=== PATIENT | female | born 1990 | race African-American/Black ===

== ENCOUNTER 2017-09-21 16:41 | Emergency (ER) | END 2017-09-21 17:39 | disposition home or self-care (01) ==

== ENCOUNTER 2017-12-17 10:16 | Emergency (ER) | END 2017-12-17 12:01 | disposition home or self-care (01) ==

== ENCOUNTER 2018-04-25 08:43 | Emergency (ER) | payer SELFPAY ==
[~2018-04-25] VITALS: Wt 78.2 kg
[2018-04-25 08:47] VITALS: BP 127/93; PULSE 96; RESP 18
[2018-04-25] MEDS ORDERED: AMOX500C2 PO (09:17)
--- NOTE | 2018-04-25 10:42 | ERD ---
ER Documentation Chief Complaint Chief Complaint RIGHT EAR HEARING DIMINISHED HPI 27-year-old female patient with no significant past medical history reports that she started to have right ear pain, feeling like something is in her right ear with diminished hearing that started a few days ago after using a Q-tip. P atient denies any fever, chills, nausea, vomiting, chest pain, shortness of breath. Denies any head trauma. ROS All systems reviewed and are negative except as per history of present illness. Medications Home Meds Active Scripts Amoxicillin* (Amoxicillin*) 500 Mg Cap, 500 MG PO TID for 10 Days, CAP Prov:DAYA HAAS PA-C 04/25/18 Allergies Allergies: Coded Allergies: No Known Allergy (Unverified , 12/17/17) PMhx/Soc Medical and Surgical Hx: pt denies Medical Hx, pt denies Surgical Hx Hx Alcohol Use: No Hx Substance Use: No Hx Tobacco Use: No Smoking Status: Never smoker FmHx Family History: No diabetes, No coronary disease Physical Exam Vitals Vital Signs Date Temp Pulse Resp B/P (MAP) Pulse Ox O2 O2 Flow FiO2 Time Delivery Rate 04/25/18 98.3 96 18 127/93 99 08:47 (104) Physical Exam Const: Qot-zri-brugkdsel, well-nourished. In no acute distress. Head: Atraumatic, normocephalic Eyes: Normal Conjunctiva without injection. No purulent discharge. PERRLA. EOMI ENT: Normal external ear. Ear canal without erythema. Tympanic membrane pearly hernandez without effusion or bulging. Nasal canal clear with normal turbinates. No tenderness palpation of the tragus or mastoid. Moist oropharynx without tonsillar exudates. Non-erythematous pharynx. Uvula midline. No drooling. No trismus. Neck: No cervical midline tenderness. Full range of motion. No meningismus. No cervical lymphadenopathy. No JVD. Resp: Clear to auscultation bilaterally. No wheezing, rhonchi, rales, or crackles. No accessory muscle use. No retractions. Cardio: Regular rate and rhythm. No murmurs, rubs or gallops. Abd: Soft, non tender, non distended. Normal bowel sounds. No palpable masses. No rebound tenderness. No guarding. Negative McBurney's Point. Negative Hudson's Sign. Skin: Normal skin turgor. No petechiae or rashes Back: No midline tenderness. No CVA tenderness. Ext: No cyanosis, or edema. Distal pulses intact bilaterally. Neur: Awake and alert. Normal gait. Normal coordination. Cranial Nerves II- VII intact. Normal finger to nose. Muscle strength 5/5. Sensation intact. Psych: Normal Mood and Affect Procedures/MDM 27-year-old female patient with no significant past medical history presents to ED complaining of right ear pain, right ear hearing diminished after using a Q- tip. Patient is afebrile and nontoxic-appearing. This patient presents to the ED with symptoms consistent with a probable ruptured tympanic membrane with noted possible purulent discharge noted. P atient will be covered for infection. Patient's physical exam include lungs which were clear to auscultation and a normal pulse oximetry. There is a low suspicion for pneumonia, pneumothorax, mononucleosis, pulmonary embolism, epiglottitis, otitis media, otitis externa, viral/strep pharyngitis, sinusitis, myocarditis, pericarditis, endocarditis, peritonsillar abscess, mastoiditis, retropharyngeal abscess, meningitis, sepsis, acute abdomen or other emergent conditions. Diagnosis: Right ear pain Discharge medications: Amoxicillin Follow up with primary care physician in 1-2 days. Instructed patient to return to the ED sooner for any worsening symptoms. Patient's questions were answered. Patient is hemodynamically stable. Patient understood and agreed with discharge plan. Patient discharged stable. Disclaimer: Inadvertent spelling and grammatical errors are likely due to EHR/dictation software use and do not reflect on the overall quality of patient care. Also, please note that the electronic time recorded on this note does not necessarily reflect the actual time of the patient encounter. Departure Diagnosis: Primary Impression: Right ear pain Condition: Stable Patient Instructions: Ruptured Tm, Infected (Adult) Referrals: [facility] YOU HAVE RECEIVED A MEDICAL SCREENING EXAM AND THE RESULTS INDICATE THAT YOU DO NOT HAVE A CONDITION THAT REQUIRES URGENT TREATMENT IN THE EMERGENCY DEPARTMENT. FURTHER EVALUATION AND TREATMENT OF YOUR CONDITION CAN WAIT UNTIL YOU ARE SEEN IN YOUR DOCTORS OFFICE WITHIN THE NEXT 1-2 DAYS. IT IS YOUR RESPONSIBILITY TO MAKE AN APPOINTMENT FOR FOLOW-UP CARE. IF YOU HAVE A PRIMARY DOCTOR --you should call your primary doctor and schedule an appointment IF YOU DO NOT HAVE A PRIMARY DOCTOR YOU CAN CALL OUR PHYSICIAN REFERRAL HOTLINE AT IF YOU CAN NOT AFFORD TO SEE A PHYSICIAN YOU CAN CHOSE FROM THE FOLLOWING [facility] [address] [facility] [address] [facility] [address] [facility] [address] [facility] [address] [facility]. [facility] [address] [facility]. [facility] YOU HAVE RECEIVED A MEDICAL SCREENING EXAM AND THE RESULTS INDICATE THAT YOU DO NOT HAVE A CONDITION THAT REQUIRES URGENT TREATMENT IN THE EMERGENCY DEPARTMENT. FURTHER EVALUATION AND TREATMENT OF YOUR CONDITION CAN WAIT UNTIL YOU ARE SEEN IN YOUR DOCTORS OFFICE WITHIN THE NEXT 1-2 DAYS. IT IS YOUR RESPONSIBILITY TO MAKE AN APPOINTMENT FOR FOLOW-UP CARE. IF YOU HAVE A PRIMARY DOCTOR --you should call your primary doctor and schedule and appointment IF YOU DO NOT HAVE A PRIMARY DOCTOR YOU CAN CALL OUR PHYSICIAN REFERRAL HOTLINE AT . IF YOU CAN NOT AFFORD TO SEE A PHYSICIAN YOU CAN CHOSE FROM THE FOLLOWING [facility] INSTITUTIONS: [facility] [address] [place] [address] [facility] [address] [place] [address] [facility] + [facility] [address] [place] [address] [facility] URGENT CARE/SPECIALTIES Additional Instructions: Call your primary care doctor TOMORROW for an appointment during the next 2-3 days.See the doctor sooner or return here if your condition worsens before your appointment time. DAYA HAAS PA-C Apr 25, 2018 10:42
[2018-05-01] MEDS ORDERED: NPH10OT RIGHT EAR (09:26)
== END 2018-04-25 09:37 | disposition home or self-care (01) ==
LOC: FTE 08:43
DX: H92.01 Otalgia, right ear (principal)
CPT/HCPCS: 99283

== ENCOUNTER 2018-06-12 12:00 | Emergency (ER) | payer SELFPAY ==
[~2018-06-12] VITALS: Ht 170.2 cm; Wt 80.0 kg
[~2018-06-12 12:00] MED LIST: AMOX500C2 PO; NPH10OT RIGHT EAR
[2018-06-12 13:09] VITALS: BP 140/84; PULSE 117; RESP 18; Ht 170.2 cm; Wt 80.0 kg
[2018-06-12] MEDS ORDERED: METR500T PO (15:43)
[2018-06-12] MEDS ORDERED: DOXY100T20 PO (15:43)
--- NOTE | 2018-06-12 15:51 | ERD ---
ER Documentation Chief Complaint Chief Complaint VAGINAL DISCHARGE & PAIN X 4 DAYS HPI Patient is a 27-year-old female with no past medical history presents the ER for concerns of vaginal discharge and pain times 4 days. Patient states that she has copious amounts of yellow discharge. Patient reports burning and itching pain. Patient denies any fevers. Patient states that she is sexually active however she denies any changes in partner for 1 year. Patient states patient denies any nausea, vomiting, abdominal pain or diarrhea. Patient denies any urinary symptoms. Patient denies vaginal foreign body. ROS All systems reviewed and are negative except as per history of present illness. Medications Home Meds Active Scripts Metronidazole* (Flagyl*) 500 Mg Tablet, 500 MG PO BID for 14 Days, TAB Prov:HÉCTOR CASILLAS PA-C 06/12/18 Doxycycline Hyclate* (Doxycycline Hyclate*) 100 Mg Tablet.dr, 100 MG PO BID for 14 Days, TAB Prov:HÉCTOR CASILLAS PA-C 06/12/18 Neomycin/Polymyxin/Hydrocort* (Cortisporin* Otic) 10 Ml Susp, 4 DROP RIGHT EAR QID for 7 Days, EA Prov:CRISTY JENSEN PA-C 05/01/18 Amoxicillin* (Amoxicillin*) 500 Mg Cap, 500 MG PO TID for 10 Days, CAP Prov:DAYA HAAS PA-C 04/25/18 Allergies Allergies: Coded Allergies: No Known Allergy (Unverified , 05/01/18) PMhx/Soc Medical and Surgical Hx: pt denies Medical Hx, pt denies Surgical Hx Hx Alcohol Use: No Hx Substance Use: No Hx Tobacco Use: No Smoking Status: Never smoker FmHx Family History: No diabetes Physical Exam Vitals Vital Signs Date Temp Pulse Resp B/P (MAP) Pulse Ox O2 O2 Flow FiO2 Time Delivery Rate 06/12/18 98.6 117 18 140/84 99 13:09 (102) Physical Exam GENERAL: Well-developed, well-nourished female. Appears in no acute distress. HEAD: Normocephalic, atraumatic. EYES: Pupils are equally reactive bilaterally. EOMs grossly intact. No conjunctival erythema. ENT: Moist mucous membranes. No uvula deviation. No kissing tonsils. NECK: Supple. No meningismus. Normal range of motion of the neck. LUNG: Clear to auscultation bilaterally. No rhonchi, wheezing, rales or coarse breath sounds. HEART: Regular rate and rhythm. No murmurs, rubs or gallops. ABDOMEN: No scars, ecchymosis or rashes noted. Soft, nontender, and nondistended. Positive bowel sounds in all four quadrants. No rebound tenderness, no guarding. (-) McBurney's point tenderness. No CVA tenderness. FEMALE GENITALIA: Exam was completed with a foreclosure clerk present. Dried yellow discharge noted throughout the external genitalia. Copious yellow drainage noted from the cervical os. No cervical motion tenderness. No foreign bodies. EXTREMITIES: Equal pulses bilaterally. No peripheral clubbing, cyanosis or edema. No unilateral leg swelling. NEUROLOGIC: Alert and oriented. Moving all four extremities without any difficulty. Normal speech. Steady gait. SKIN: Normal color. Warm and dry. No rashes or lesions. Results 24 hrs Laboratory Tests Test 06/12/18 14:17 06/12/18 14:19 Bedside Urine pH (LAB) 6.5 Bedside Urine Protein (LAB) Negative Bedside Urine Glucose (UA) Negative Bedside Urine Ketones (LAB) Negative Bedside Urine Blood 2+ Bedside Urine Nitrite (LAB) Negative Bedside Urine Leukocyte Esterase (L 2+ POC Beta HCG, Qualitative NEGATIVE Current Medications Medications Dose Sig/Khari Start Time Status Last (Trade) Ordered Route PRN Stop Time Admin Dose Reason Admin Ceftriaxone 250 mg ONCE ONCE 06/12/18 DC 06/12/18 Sodium IM 16:00 15:49 (Rocephin) 06/12/18 16:00 Procedures/MDM MEDICAL DECISION MAKING: This is a 27-year-old female presents the ER for concerns of vaginal discharge times 4 days. Vital signs were reviewed. Patient was afebrile. Urine test was negative. UA showed 2+ leukocyte esterase, 2+ blood. Patient denies any urinary symptoms. I do feel that this is leukocytes or due to vaginal discharge. Wet mount showed positive leukocytes and WBCs. No yeast or clue cells were noted. No evidence of trichomoniasis. On exam, patient had copious amount of vaginal discharge and no CMT tenderness however do have concerns of early PID. Patient was given Rocephin 250 IM here and will be discharged home with prescription for metronidazole and doxycycline. Patient was advised to follow-up with [employer] [employer] INSTRU[facility] in the next 1-2 days. Referral information provided. Low suspicion for ectopic , ovarian torsion, tubo-ovarian abscess, fibroids, endometriosis, nephrolithiasis, pyelonephritis, UTI, appendicitis, diverticulitis, bowel obstruction, perirectal abscess, retained FB. Patient was nontoxic, [id number] prior to discharge. PRESCRIPTIONS: Metronidazole, doxycycline DISCHARGE: At this time, patient is stable for discharge and outpatient management. I have instructed the patient to follow-up with his/her primary care physician in 1-2 days. I have discussed with the patient the possibility of needing to see a specialist for further workup and diagnostic studies if the pain persists. I have instructed the patient to promptly return to the ER at any time for any new or worsening symptoms including increased pain, nausea, vomiting, vaginal bleeding, weakness or fever. The patient and/or family expressed understanding of and agreement with this plan. All questions were answered. Home care instructions were provided. Disclaimer: Inadvertent spelling and grammatical errors are likely due to EHR/dictation software use and do not reflect on the overall quality of patient care. Also, please note that the electronic time recorded on this note does not necessarily reflect the actual time of the patient encounter. Departure Diagnosis: Primary Impression: Vaginal discharge Condition: Fair Patient Instructions: Vaginal Infection: Understanding the Vaginal Environment, Pelvic Inflammatory Disease Referrals: [facility] YOU HAVE RECEIVED A MEDICAL SCREENING EXAM AND THE RESULTS INDICATE THAT YOU DO NOT HAVE A CONDITION THAT REQUIRES URGENT TREATMENT IN THE EMERGENCY DEPARTMENT. FURTHER EVALUATION AND TREATMENT OF YOUR CONDITION CAN WAIT UNTIL YOU ARE SEEN IN YOUR DOCTORS OFFICE WITHIN THE NEXT 1-2 DAYS. IT IS YOUR RESPONSIBILITY TO MAKE AN APPOINTMENT FOR FOLOW-UP CARE. IF YOU HAVE A PRIMARY DOCTOR --you should call your primary doctor and schedule an appointment IF YOU DO NOT HAVE A PRIMARY DOCTOR YOU CAN CALL OUR PHYSICIAN REFERRAL HOTLINE AT IF YOU CAN NOT AFFORD TO SEE A PHYSICIAN YOU CAN CHOSE FROM THE FOLLOWING [facility] [address] [facility] [address] [facility] [address] [facility] [address] [facility] [address] [facility]. [facility] [address] [facility]. [facility] YOU HAVE RECEIVED A MEDICAL SCREENING EXAM AND THE RESULTS INDICATE THAT YOU DO NOT HAVE A CONDITION THAT REQUIRES URGENT TREATMENT IN THE EMERGENCY DEPARTMENT. FURTHER EVALUATION AND TREATMENT OF YOUR CONDITION CAN WAIT UNTIL YOU ARE SEEN IN YOUR DOCTORS OFFICE WITHIN THE NEXT 1-2 DAYS. IT IS YOUR RESPONSIBILITY TO MAKE AN APPOINTMENT FOR FOLOW-UP CARE. IF YOU HAVE A PRIMARY DOCTOR --you should call your primary doctor and schedule and appointment IF YOU DO NOT HAVE A PRIMARY DOCTOR YOU CAN CALL OUR PHYSICIAN REFERRAL HOTLINE AT . IF YOU CAN NOT AFFORD TO SEE A PHYSICIAN YOU CAN CHOSE FROM THE FOLLOWING [facility] INSTITUTIONS: [facility] [address] [place] [address] [facility] [address] [place] [address] [facility] [address] [place] [address] [facility] URGENT CARE/SPECIALTIES OFFICE SYSTEMS TECHNOLOGY INSTRU[place] [address] [facility] [address] [place], [place] [id number] OFFICE FAX [employer] [facility] [address] [place], [place] [id number] [facility] [address] [place] [address] [address] [address] [facility] [address] [address] [place], [place] [id number] [facility] [address] [place] [address] [address] [facility] [address] - [place] [address], [facility] [id number] GARBER, DANISHA [address] [facility]. [address], [place] [id number] NICOLE, [facility] [address] [place] [address] Additional Instructions: Follow up with OBGYN in the next 2 days, see referral information. Call your primary care doctor TOMORROW for an appointment during the next 1-2 days.See the doctor sooner or return here if your condition worsens before your appointment time. HÉCTOR CASILLAS PA-C Jun 12, 2018 15:51
[2018-06-12] MEDS ORDERED: CEFTRIAXONE 250 MG INJ IM ONE (16:00)
== END 2018-06-12 15:54 | disposition home or self-care (01) ==
LOC: FTE 12:00
DX: N89.8 Other specified noninflammatory disorders of vagina (principal)
CPT/HCPCS: 81003; 81025; 87210; J0696; 87591; 96372